=== PATIENT | male | born 1930 | race Caucasian/White ===

== ENCOUNTER 2017-04-02 21:35 | Inpatient (IN) | payer MEDICARE, OTHER ==
[~2017-04-02] VITALS: Ht 172.7 cm; Wt 59.6 kg
[2017-04-02 21:52] VITALS: BP 149/68; PULSE 89; RESP 20; TEMP 98.1; O2SAT 100
[2017-04-02 21:59] VITALS: BP 149/68; PULSE 89; RESP 20; O2SAT 100
[2017-04-02] MEDS ORDERED: SODIUM CHLORIDE 0.9% FLUSH 10 ML FLUSH IVF PRN (22:00)
[2017-04-02 22:07] VITALS: RESP 18; O2SAT 100
--- NOTE | 2017-04-02 22:16 | PD ---
HPI Chief Complaint: Medical Clearance Time Seen by Provider: 21:47 Travel History International Travel<30 days: No Contact w/Intl Traveler<30days: No Traveled to known affect area: No History of Present Illness HPI Patient is an 87-year-old male on dialysis followed by Dr. Al presents the emergency department for evaluation of right lower extremity pain. Patient states that the pain in his right lower extremity has been going on for approximately a month ever since he had his right hip replaced [facility]. Patient states he had dialysis today and has been continued to have pain since. She states the pain gets worse when he walks. States that it is quite severe today. Denies any shortness of breath abdominal pain nausea vomiting diarrhea chest pain or shortness of breath. PFSH Past Medical History Hx Anticoagulant Therapy: Yes (ASA) Cancer: Yes (RT EAR) Cardiovascular Problems: Yes (CABG QUAD, STENTS, CHF) Chest Pain: Yes Congestive Heart Failure: Yes Coronary Artery Disease: Yes Dialysis: Yes (NO STICKS LEFT ARM) Respiratory: Yes (PNEUMONIA) Past Surgical History Abdominal Surgery: Yes (PARTIAL COLOSTOMY, REVERSED) Cardiac Surgery: Yes (CABG QUAD, STENTS) Joint Replacement: Yes (TOTAL RT HIP) Other Surgery: Yes (SKIN CA SX ON RT EAR) Social History Alcohol Use: No Tobacco Use: No Substance Use: No Allergies-Medications (Allergen,Severity, Reaction): Coded Allergies: No Known Allergies (Unverified , 04/02/17) Review of Systems Except as stated in HPI: all other systems reviewed are Neg Physical Exam Narrative GENERAL: [Well-developed, thin but in no obvious distress. SKIN: There is an obvious pallor to the right lower extremity when compared to the left. HEAD: Atraumatic. Normocephalic. EYES: Pupils equal and round. No scleral icterus. No injection or drainage. ENT: No nasal bleeding or discharge. Mucous membranes pink and moist. NECK: Trachea midline. No JVD. CARDIOVASCULAR: Regular rate and rhythm. No murmur appreciated. RESPIRATORY: No accessory muscle use. Clear to auscultation. Breath sounds equal bilaterally. GASTROINTESTINAL: Abdomen soft, non-tender, nondistended. Hepatic and splenic margins not palpable. MUSCULOSKELETAL: Right lower extremity compartments are soft, extremity is pale and cool to the touch vague euthermic when compared to the contralateral extremity. No tenderness to the extremity, there is a femoral pulse but no pulse could be obtained in the dorsalis pedis no the posterior tibial even with pulse Doppler, no popliteal pulse Doppler could be achieved either. No obvious deformity. Pulses are palpable in the left lower extremity. NEUROLOGICAL: Awake and alert. No obvious cranial nerve deficits. Motor grossly within normal limits. Normal speech. PSYCHIATRIC: Appropriate mood and affect; insight and judgment normal. Data Data Last Documented VS Vital Signs Date Time Temp Pulse Resp B/P Pulse Ox O2 Delivery O2 Flow Rate FiO2 04/03/17 01:15 86 18 136/65 98 Room Air 04/02/17 21:52 98.1 Orders Cta Runoff W Iv Contrast W 3d (04/02/17 ) Electrocardiogram (04/02/17 21:47) Complete Blood Count With Diff (04/02/17 21:47) Comprehensive Metabolic Panel (04/02/17 21:47) Magnesium (Mg) (04/02/17 21:47) Prothrombin Time / Inr (Pt) (04/02/17 21:47) Act Partial Throm Time (Ptt) (04/02/17 21:47) Chest, Single Ap (04/02/17 21:47) Ecg Monitoring (04/02/17 21:47) Iv Access Insert/Monitor (04/02/17 21:47) Oximetry (04/02/17 21:47) Oxygen Administration (04/02/17 21:47) Sodium Chloride 0.9% Flush (Ns Flush) (04/02/17 22:00) Acetamin-Hydrocod 325-5 Mg (Renick 5-325 (04/02/17 22:30) Iodixanol 320 Inj (Rad Ct) (Visipaque 32 (04/02/17 22:40) Heparin Infusion CLARENCE.Q1H (04/03/17 00:35) Heparin Inj (Heparin Inj) (04/03/17 00:45) Heparin Inj (Heparin Inj) (04/03/17 06:45) Heparin Inj (Heparin Inj) (04/03/17 06:45) Heparin-D5w Inj (Heparin-D5w Inj) (04/03/17 00:45) Cbc No Diff, Includes Plts (04/06/17 06:00) Act Partial Throm Time (Ptt) (04/03/17 07:35) Occult Blood (Hemoccult) Stool (04/03/17 00:35) Consult Vascular Surgery (04/03/17 ) Morphine Inj (Morphine Inj) (04/03/17 00:45) (Hub Use Only)Inp Phy Cons/Ref (04/03/17 ) Admit Order (Ed Use Only) (04/03/17 ) Consult Nephrology (04/03/17 ) Admit To Inpatient (04/03/17 ) Vital Signs (Adult) Q4H (04/03/17 01:29) Activity Bed Rest (04/03/17 01:29) [employer] Placing Supervisor / Telemetry .CONTINUOUS (04/03/17 01:29) Sodium Chloride 0.9% Flush (Ns Flush) (04/03/17 01:30) Sodium Chloride 0.9% Flush (Ns Flush) (04/03/17 09:00) Basic Metabolic Panel (Bmp) (04/04/17 06:00) Complete Blood Count With Diff (04/04/17 06:00) Naloxone Inj (Narcan Inj) (04/03/17 01:30) Inpatient Certification (04/03/17 ) Creatine Kinase (Cpk) (04/02/17 21:55) Labs Laboratory Tests Test 04/02/17 21:55 White Blood Count 10.7 TH/MM3 Red Blood Count 3.17 MIL/MM3 Hemoglobin 9.9 GM/DL Hematocrit 29.2 % Mean Corpuscular Volume 92.0 FL Mean Corpuscular Hemoglobin 31.2 PG Mean Corpuscular Hemoglobin 33.9 % Concent Red Cell Distribution Width 15.7 % Platelet Count 284 TH/MM3 Mean Platelet Volume 9.0 FL Neutrophils (%) (Auto) 73.6 % Lymphocytes (%) (Auto) 15.3 % Monocytes (%) (Auto) 10.4 % Eosinophils (%) (Auto) 0.2 % Basophils (%) (Auto) 0.5 % Neutrophils # (Auto) 7.9 TH/MM3 Lymphocytes # (Auto) 1.6 TH/MM3 Monocytes # (Auto) 1.1 TH/MM3 Eosinophils # (Auto) 0.0 TH/MM3 Basophils # (Auto) 0.0 TH/MM3 CBC Comment DIFF FINAL Differential Comment Prothrombin Time 10.5 SEC Prothromb Time International 1.0 RATIO Ratio Activated Partial 25.8 SEC Thromboplast Time Sodium Level 140 MEQ/L Potassium Level 4.3 MEQ/L Chloride Level 98 MEQ/L Carbon Dioxide Level 31.7 MEQ/L Anion Gap 10 MEQ/L Blood Urea Nitrogen 13 MG/DL Creatinine 3.67 MG/DL Estimat Glomerular Filtration 16 ML/MIN Rate Random Glucose 173 MG/DL Calcium Level 9.5 MG/DL Magnesium Level 2.2 MG/DL Total Bilirubin 0.5 MG/DL Aspartate Amino Transf 25 U/L (AST/SGOT) Alanine Aminotransferase 16 U/L (ALT/SGPT) Alkaline Phosphatase 93 U/L Total Protein 8.0 GM/DL Albumin 3.1 GM/DL [facility] Medical Decision Making Medical Screen Exam Complete: Yes Emergency Medical Condition: Yes Differential Diagnosis Right lower extremity claudication, right lower extremity ischemia, arterial occlusion acute on chronic. Narrative Course Patient was roomed in emergency department, emergent CTA was pursued which shows significant disease. Patient was discussed radiologist superintendent nonselling per preliminary read is that the patient has near complete occlusion of the right femoral with incomplete collateral circulation. The patient was discussed at length with Dr. Pérez who is arrived at the bedside to evaluate the patient and agrees that the patient's leg is threatened. Dr. Jon has been discussing with Dr. Leodan Naranjo for intervention the plan is to go to the interventional suite for consideration of TPA. The patient was heparinized after discussing with Dr. Jon. The patient and his family were updated he was given several doses of pain medicine in the emergency department. Initially the patient was discussed with Dr. Navarrete who has not been involved directly with the patient's care. After Dr. Pérez has examined the patient he is decided to upgrade the patient to [facility] care and therefore Dr. Garsia has been consult that for primary management. Last 24 hours Impressions Chest X-Ray 04/02/172146 Signed Impressions: Service Date/Time: Sunday, April 02, 2017 22:22 - CONCLUSION: 1. Chronic fibrotic changes bilaterally unchanged from the prior study. No acute pulmonary disease. Alex Terry MD Critical Care Narrative Aggregate critical care time was 35 minutes. Time to perform other separately billable procedures was not included in the critical care time. My time did not include minutes spent treating any other patients simultaneously or on activities that did not directly contribute to the patient's treatment. The services I provided to this patient were to treat and/or prevent clinically significant deterioration that could result in: , disability, organ failure, need for amputation. I provided critical care services requiring my management, as noted below: Chart data review, documentation time, medication orders and management, vital sign assessments/reviewing monitor data, ordering and reviewing lab tests, ordering and interpreting/reviewing x-rays and diagnostic studies, care of the patient and discussion of the patient with the admitting physicians. Diagnosis Primary Impression: Ischemia of right lower extremity Admitting Information Admitting Physician Requests: Admit Condition: Arsh Montiel MD April 02, 2017 22:16
[2017-04-02] MEDS ORDERED: ACETAMINOPHEN/HYDROcodone 325 MG/5 MG TAB PO ONE (22:30)
[2017-04-02 22:40] LABS: AUTOMATED NEUTROPHIL # 7.9 TH/MM3 (1.8-7.7); BASOPHIL % 0.5 % (0.0-2.0); EOSINOPHIL % 0.2 % (0.0-4.0); HEMATOCRIT 29.2 % (39.0-51.0); HEMO FLAGS DIFF FINAL; LYMPH % 15.3 % (9.0-44.0); LYMPHOCYTE # 1.6 TH/MM3 (1.0-4.8); MEAN CORPUSCULAR HEMOGLOBIN 31.2 PG (27.0-34.0); MEAN CORPUSCULAR HGB CONC 33.9 % (32.0-36.0); MONO % 10.4 % (0.0-8.0); NEUT % 73.6 % (16.0-70.0); PLATELET COUNT 284 TH/MM3 (150-450); RED BLOOD COUNT 3.17 MIL/MM3 (4.50-5.90); RED CELL DISTRIBUTION WIDTH 15.7 % (11.6-17.2); WHITE BLOOD COUNT 10.7 TH/MM3 (4.0-11.0)
[2017-04-02] MEDS ORDERED: IODIXANOL 320 MG/ML 10 ML VIAL (for Rad CT) IV ONE (22:40)
--- NOTE | 2017-04-02 22:47 | RADRPT ---
EXAM DATE/TIME: 04/02/2017 22:22 [place] COMPARISON: No previous studies available for comparison. INDICATIONS : Right leg pain. Patient being evaluated for DVT. MEDICAL HISTORY : Congestive heart failure. Dementia. Dialysis. SURGICAL HISTORY : CABG. Coronary artery stent. Skin cancer. Right total hip. ENCOUNTER: Initial ACUITY: 1 day PAIN SCORE: 0/10 LOCATION: Bilateral chest FINDINGS: The cardiac silhouette is normal in transverse diameter. Median sternotomy wires are present. There i s prominence of the aortic knob is with calcification characteristic of atherosclerotic vascular dise ase. There is no evidence of pneumonia. Multiple right-sided granulomas are present. There is probab le scarring bilaterally. CONCLUSION: 1. Chronic fibrotic changes bilaterally unchanged from the prior study. No acute pulmonary disease. Alex Terry MD on April 02, 2017 at 22:45 Board Certified Radiologist. This report was verified electronically.
[2017-04-02 23:00] VITALS: BP 157/70; PULSE 89; RESP 18; O2SAT 100
[2017-04-02 23:00] LABS: ANION GAP 10 MEQ/L (5-15); APTT (PATIENT) 25.8 SEC (24.3-30.1); AST (GOT) 25 U/L (15-37); BICARBONATE 31.7 MEQ/L (21.0-32.0); BLOOD UREA NITROGEN 13 MG/DL (7-18); CHLORIDE 98 MEQ/L (98-107); GLOMERULAR FILTRATION RATE 16 ML/MIN (>89); MAGNESIUM 2.2 MG/DL (1.5-2.5); POTASSIUM 4.3 MEQ/L (3.5-5.1); PROTHROMBIN TIME - PATIENT 10.5 SEC (9.8-11.6); SODIUM (NA) 140 MEQ/L (136-145)
[2017-04-02 23:04] LABS: ALKALINE PHOSPHATASE 93 U/L (45-117); ALT (GPT) 16 U/L (12-78); TOTAL BILIRUBIN ADULT 0.5 MG/DL (0.2-1.0)
[2017-04-03] VITALS (16 sets, daily range): BP systolic 87–136; BP diastolic 50–67; PULSE 78–123; RESP 14–32; TEMP 97.6–98.7; O2SAT 94–100
[2017-04-03] MEDS ORDERED: HEPARIN SODIUM - IV 10,000 UNITS/10 ML VIAL IV ONE (00:45)
[2017-04-03] MEDS ORDERED: MORPHINE SULFATE 4 MG/ML INJ IV PUSH ONE ×2 (00:45→02:30)
[2017-04-03] MEDS ORDERED: HEPARIN-D5W INJ 250 ML IV SCH (00:45)
[2017-04-03] MEDS ORDERED: NALOXONE HCL 0.4 MG/ML AMP IV PRN ×2 (01:30→02:45)
[2017-04-03] MEDS ORDERED: SODIUM CHLORIDE 0.9% FLUSH 10 ML FLUSH IV FLUSH PRN ×3 (01:30→10:45)
[2017-04-03] MEDS ORDERED: SODIUM CHLOR 0.9% 250 ML INJ 250 ML IV ONE ×2 (02:15)
[2017-04-03] MEDS ORDERED: MIDAZOLAM HCL 5 MG/5 ML VIAL ONE ×2 (02:42→12:25)
[2017-04-03] MEDS ORDERED: fentaNYL CITRATE 250 MCG/5 ML AMP ONE ×2 (02:42→12:25)
[2017-04-03] MEDS ORDERED: ONDANSETRON HCL 4 MG/2 ML VIAL IV PRN ×4 (02:45→10:45)
[2017-04-03] MEDS ORDERED: Post-op Orders (for Pharmacy) MISC XX ONE (02:45)
[2017-04-03] MEDS: SODIUM CHLOR 0.9% 1000 ML INJ 1,000 ML IV SCH ×2 (03:14→15:09)
[2017-04-03] MEDS ORDERED: MORPHINE SULFATE 4 MG/ML INJ IV PRN (03:15)
[2017-04-03] MEDS ORDERED: MISCELLANEOUS NURSING INFORMATION XX SCH (03:15)
[2017-04-03] MEDS ORDERED: TEMAZEPAM 15 MG CAP PO PRN (03:15)
[2017-04-03] MEDS ORDERED: RESP: ALBUTEROL 2.5 MG/IPRATROPIUM 0.5 MG NEB (PRN) INH (03:15)
[2017-04-03] MEDS ORDERED: SODIUM CHLORIDE 0.9% FLUSH 10 ML FLUSH PRN (03:15)
[2017-04-03] MEDS ORDERED: METOCLOPRAMIDE HCL 10 MG/2 ML VIAL IV PRN (03:15)
[2017-04-03] MEDS ORDERED: oxyCODONE/ACETAMINOPHEN 5 MG/325 MG TAB PO PRN (03:15)
[2017-04-03] MEDS ORDERED: ACETAMINOPHEN 325 MG TAB PO PRN ×2 (03:15→10:45)
[2017-04-03] MEDS ORDERED: CHLORHEXIDINE GLUCONATE 2 % 1 PACK (2 CLOTHS) TOP PRN (03:15)
[2017-04-03] MEDS ORDERED: ALTEPLASE RECOMBINANT 2 MG VIAL ONE (03:45)
[2017-04-03] MEDS ORDERED: CHLORHEXIDINE GLUCONATE 2 % 1 PACK (2 CLOTHS) TOP SCH (04:00)
--- NOTE | 2017-04-03 04:01 | PD.RAD ---
Post Procedure Progress Note Pre Procedure Diagnosis: (1) Ischemia of right lower extremity Post Procedure Diagnosis: (1) Ischemia of right lower extremity Procedure Date: April 03, 2017 Supervising Radiologist: Franklin Naranjo Anesthesia: Local, Conscious Sedation Plan of Activity Patient to Unit: Critical Care Patient Condition: Fair Additional Comments: Angio demonstrated complete thrombosis of the right lower extremity with fresh clot throughout the SFA, Profunda, popliteal and with extension down into the tibial vessels.Run off vessels are quite diseased with clot evident. Right leg is severely threatened at this point. TPA infusion initiated at 2mg per hour in hopes of opening up some distal run off. Will reevaluate in 8-10 hours. See PACS Report for procedural detail/treatment Franklin Naranjo MD April 03, 2017 04:01
[2017-04-03] MEDS ORDERED: IODIXANOL 320 MG/ML 50 ML VIAL (for RAD SPEC) I-ARTERIAL ONE ×3 (04:25→13:43)
--- NOTE | 2017-04-03 05:47 | HHI.HP ---
[facility] Service Critical Care Medicine Primary Care Physician [facility] Admission Diagnosis Ischemic RLE Diagnosis: Travel History International Travel<30 Days: No Contact w/Intl Traveler <30 Da: No Traveled to Known Affected Are: No History of Present Illness 87-year-old gentleman with history of coronary artery disease, status post CABG , peripheral vascular disease, end-stage renal disease on hemodialysis was brought by the family today for complaining of severe right lower extremity pain. He was found in the emergency department to be missing peripheral pulses on the right lower extremity and was emergently taken to the vascular suite for angiogram and thrombolysis. He was diagnosed with acute right lower extremity thrombosis and treated with TPA. Review of Systems Constitutional: DENIES: Diaphoretic episodes, Fatigue, Fever, Weight gain, Weight loss, Chills, Dizziness, Change in appetite, Night Sweats Endocrine: DENIES: Heat/cold intolerance, Polydipsia, Polyuria, Polyphagia Eyes: DENIES: Blurred vision, Diplopia, Eye inflammation, Eye pain, Vision loss , Photosensitivity, Double Vision Ears, nose, mouth, throat: DENIES: Tinnitus, Hearing loss, Vertigo, Nasal discharge, Oral lesions, Throat pain, Hoarseness, Ear Pain, Running Nose, Epistaxis, Sinus Pain, Toothache, Odynophagia Respiratory: DENIES: Apneas, Cough, Snoring, Wheezing, Hemoptysis, Sputum production, Shortness of breath Cardiovascular: DENIES: Chest pain, Palpitations, Syncope, Dyspnea on Exertion , PND, Lower Extremity Edema, Orthopnea, Claudication Gastrointestinal: DENIES: Abdominal pain, Black stools, Bloody stools, Constipation, Diarrhea, Nausea, Vomiting, Difficulty Swallowing, Anorexia Genitourinary: DENIES: Sexual dysfunction, Urinary frequency, Urinary incontinence, Urgency, Hematuria, Dysuria, Nocturia, Penile Discharge, Testicular Pain, Testicular Swelling Musculoskeletal: DENIES: Joint pain, Muscle aches, Stiffness, Joint Swelling, Back pain, Neck pain Integumentary: DENIES: Abnormal pigmentation, Nail changes, Pruritus, Rash Hematologic/lymphatic: DENIES: Bruising, Lymphadenopathy Immunologic/allergic: DENIES: Eczema, Urticaria Neurologic: DENIES: Abnormal gait, Headache, Localized weakness, Paresthesias, Seizures, Speech Problems, Tremor, Poor Balance Psychiatric: DENIES: Anxiety, Confusion, Mood changes, Depression, Hallucinations, Agitation, Suicidal Ideation, Homicidal Ideation, Delusions Past Family Social History Allergies: Coded Allergies: No Known Allergies (Unverified , 04/02/17) Past Medical History Right ear skin cancer Congestive Heart Failure Coronary Artery Disease End-stage renal disease on hemodialysis Past Surgical History Partial colostomy, reversed CABG Total right hip replacement AV hemodialysis fistula Active Ordered Medications Current Medications Medications (Trade) Dose Ordered Sig/Lupe Route PRN Reason Start Time Stop Time Status Last Admin Dose Admin Heparin Sodium (Porcine) (Heparin Inj) 5,000 units UNSCH PRN IV APTT LESS THAN 25 04/03/17 06:45 Heparin Sodium (Porcine) 2500 units 2,500 units UNSCH PRN IV APTT 25 TO 39 04/03/17 06:45 Heparin Sodium/ Dextrose 250 ml @ 0 mls/hr TITRATE IV 04/03/17 00:45 04/03/17 01:03 Sodium Chloride 250 ml @ 15 mls/hr ONCE ONCE IV 04/03/17 02:15 04/03/17 18:54 Sodium Chloride (NS 250 ml Inj) 250 ml @ 15 mls/hr ONCE ONCE IV 04/03/17 02:15 04/03/17 18:54 Sodium Chloride (NS Flush) 2 ml UNSCH PRN IV FLUSH FLUSH AFTER USING IV ACCESS 04/03/17 02:45 Sodium Chloride (NS Flush) 2 ml BID IV FLUSH 04/03/17 09:00 Ondansetron HCl (Zofran Inj) 4 mg Q6H PRN IV NAUSEA OR VOMITING 04/03/17 02:45 Pantoprazole Sodium (Protonix) 40 mg Q24H PO 04/03/17 09:00 Naloxone HCl 0.4 mg 0.4 mg UNSCH PRN IV SEE LABEL COMMENTS 04/03/17 02:45 Sodium Chloride (NS 1000 ml Inj) 1,000 ml @ 84 mls/hr [id number] IV 04/03/17 03:14 Sodium Chloride (NS Flush) 2 ml UNSCH PRN .XX FLUSH AFTER USING IV ACCESS 04/03/17 03:15 Sodium Chloride (NS Flush) 2 ml BID .XX 04/03/17 09:00 Acetaminophen (Tylenol) 650 mg Q6H PRN PO PAIN 1-10 AND/OR FEVER >101F 04/03/17 03:15 Oxycodone/ Acetaminophen (Percocet 5-325 Mg) 1 tab Q4H PRN PO PAIN SCALE 1 TO 5 04/03/17 03:15 Morphine Sulfate (Morphine Inj) 2 mg Q2H PRN IV PAIN SCALE 6 TO 10 04/03/17 03:15 Famotidine (Pepcid) 10 mg Q12HR PO 04/03/17 09:00 Ondansetron HCl (Zofran Inj) 4 mg Q6H PRN IV NAUSEA OR VOMITING 04/03/17 03:15 Metoclopramide HCl (Reglan Inj) 5 mg Q6H PRN IV NAUSEA OR VOMITING 04/03/17 03:15 Docusate Sodium (Colace) 100 mg BID PO 04/03/17 09:00 Temazepam (Restoril) 15 mg HS PRN PO INSOMNIA 04/03/17 03:15 Miscellaneous Information 1 Q361D XX 04/03/17 03:15 Chlorhexidine Gluconate (Chlorhexidine 2% Cloth) 3 pack Taper DAILY@04 TOP 04/03/17 04:00 03/30/18 03:59 Chlorhexidine Gluconate (Chlorhexidine 2% Cloth) 3 pack UNSCH PRN TOP HYGIENIC CARE 04/03/17 03:15 Family History Noncontributory Social History Negative 3 Physical Exam Vital Signs Vital Signs Date Time Temp Pulse Resp B/P Pulse Ox O2 Delivery O2 Flow Rate FiO2 04/03/17 02:28 86 18 127/67 98 04/03/17 01:59 87 18 136/67 99 Room Air 04/03/17 01:15 86 18 136/65 98 Room Air 04/03/17 00:10 88 18 132/65 99 Room Air 04/02/17 23:00 89 18 157/70 100 Room Air 04/02/17 22:07 100 Room Air 04/02/17 22:07 18 100 Room Air 04/02/17 22:00 88 20 04/02/17 21:59 89 20 149/68 100 Room Air 04/02/17 21:52 98.1 89 20 149/68 100 Physical Exam GENERAL: Well-nourished, well-developed patient elderly gentleman comfortably sleeping in the bed in no acute distress SKIN: Warm and dry. HEAD: Normocephalic. EYES: No scleral icterus. No injection or drainage. NECK: Supple, trachea midline. No JVD or lymphadenopathy. CARDIOVASCULAR: Regular rate and rhythm without murmurs, gallops, or rubs. RESPIRATORY: Breath sounds equal bilaterally. No accessory muscle use. GASTROINTESTINAL: Abdomen soft, non-tender, nondistended. MUSCULOSKELETAL: No cyanosis, or edema. BACK: Nontender without obvious deformity. No CVA tenderness. EXTREMITIES: No peripheral pulses in the right lower extremity Laboratory Laboratory Tests Test 04/02/17 04/03/17 21:55 02:15 White Blood Count 10.7 Red Blood Count 3.17 Hemoglobin 9.9 Hematocrit 29.2 Mean Corpuscular Volume 92.0 Mean Corpuscular Hemoglobin 31.2 Mean Corpuscular Hemoglobin 33.9 Concent Red Cell Distribution Width 15.7 Platelet Count 284 Mean Platelet Volume 9.0 Neutrophils (%) (Auto) 73.6 Lymphocytes (%) (Auto) 15.3 Monocytes (%) (Auto) 10.4 Eosinophils (%) (Auto) 0.2 Basophils (%) (Auto) 0.5 Neutrophils # (Auto) 7.9 Lymphocytes # (Auto) 1.6 Monocytes # (Auto) 1.1 Eosinophils # (Auto) 0.0 Basophils # (Auto) 0.0 CBC Comment DIFF FINAL Differential Comment Prothrombin Time 10.5 Prothromb Time International 1.0 Ratio Activated Partial 25.8 Thromboplast Time Sodium Level 140 Potassium Level 4.3 Chloride Level 98 Carbon Dioxide Level 31.7 Anion Gap 10 Blood Urea Nitrogen 13 Creatinine 3.67 Estimat Glomerular Filtration 16 Rate Random Glucose 173 Calcium Level 9.5 Magnesium Level 2.2 Total Bilirubin 0.5 Aspartate Amino Transf 25 (AST/SGOT) Alanine Aminotransferase 16 (ALT/SGPT) Alkaline Phosphatase 93 Total Protein 8.0 Albumin 3.1 Blood Type O NEGATIVE Antibody Screen NEGATIVE Blood Bank Comment Result Diagram: 04/02/17215404/02/172154 Imaging Last 24 hours Impressions Chest X-Ray 04/02/172146 Signed Impressions: Service Date/Time: Sunday, April 02, 2017 22:22 - CONCLUSION: 1. Chronic fibrotic changes bilaterally unchanged from the prior study. No acute pulmonary disease. Alex Terry MD Assessment and Plan Assessment and Plan Right lower extremity thrombosis - Status post TPA administered by IR - Management per Dr. Valerio vascular surgery - Heparin drip ESRD - Hemodialysis per nephrology Coronary artery disease - Continue aspirin and statins DVT GI prophylaxis - Heparin drip - Pepcid Critical Care: The total critical care time was 35 minutes. Time to perform other separately billable procedures was not included in the critical care time. Vic Garsia MD April 03, 2017 05:47
[2017-04-03 06:11] LABS: CREATINE KINASE 30 U/L (39-308)
--- NOTE | 2017-04-03 06:39 | MB ---
cc: CHIQUITA RIVER MD DATE OF CONSULTATION 04/03/[address] River, vascular surgery REASON FOR CONSULTATION Acute occlusion of the right leg, peripheral vascular disease, and chronic renal failure. HISTORY OF PRESENT DISEASE This 87-year-old male presented to the emergency room this evening with a history of difficulty walking for months. However, today around 6 o'clock in the evening, he noted that his leg changed color. I was called around one in the morning to attend to the patient after he underwent a CT scan which revealed occlusion of flow to the right leg. The patient states that he had longstanding problems with his legs, however this is a sudden change and to it very concerning so he came to the ER. PAST SURGICAL HISTORY 1. Left colectomy with colostomy and reversal. 2. Coronary artery bypass surgery in the s followed by several stents later on. 3. Right total hip replacement six weeks ago. 4. AV fistula placement left arm. SOCIAL HISTORY Does not smoke or drink. PAST medical HISTORY 1. Above-noted coronary artery disease with CABG and stents. 2. Recent pneumonia about 3. Several bouts of atrial fibrillation. 4. Chronic renal failure requiring dialysis for last few years. PHYSICAL EXAM Physical examination reveals a pleasant 87-year-old gentleman in no acute distress. HEAD, EYES, EARS, NOSE, AND THROAT: Normocephalic. No trauma to the head. Pupils equally reactive. Extraocular muscles are intact. NECK: Supple. Bilateral carotid pulses and bilateral faint bruits. CHEST: Bilateral breath sounds decreased over both lung early. HEART: Regular rhythm. The patient is not in atrial fibrillation. ABDOMEN: Soft, patulous. Scars from previous surgery. Active bowel sounds. EXTREMITIES: Upper extremities are normal. On the Lower extremities, the patient has bilateral femoral pulses strong and palpable. On the left side, the patient has a palpable popliteal pulse, dorsalis pedis and posterior tibial pulse. On the right side, the patient has no pulses below the groin. Right foot is pale, white clearly with no blood flow and decreased sensation over the plantar surface of the foot. The patient can still move the foot. NEUROLOGIC: Grossly, the patient is intact except for decreased sensation in the right leg and foot. IMPRESSION/RECOMMENDATIONS This gentleman has acute occlusion of the flow to the right leg, however this is superimposed on chronic underlying arteriosclerotic disease so the whole thing basically came to a grinding halt. This was a thrombotic phenomenon based on vascular underlying changes. At this point, the patient is six weeks out of his hip surgery and the most appropriate way to treat this as with tPA lysis which will be started today. I have discussed this with Dr. Leodan Naranjo, interventional radiology. In the best case scenario per the completion of the tPA lysis the next 24 hours, we will see what is left and what this anatomy looks like. The patient has some reconstructable disease either by endovascular open means. I will resort to that in order to minimize the chance of this coming back. On the other hand in the worst case scenario, there is nothing reconstructable. We cannot get a flow back at all and at that point, the patient would lose his leg. In addition open surgery and TPA lysis carry certain risks including stroke, intracranial hemorrhage, systemic hemorrhage, cardiac complications etc. I have explained this to the patient and the family and they understand. I spoken to interventional radiologist and patient will go emergently for a tPA lysis which I believe is the best option and we will go from there. Thank you very much for your referral. Critical care time 40 minutes. Chiquita CHÁVEZ /2:39 AM /6:31 AM MTDD
[2017-04-03] MEDS ORDERED: HEPARIN SODIUM - IV 10,000 UNITS/10 ML VIAL IV PRN ×2 (06:45)
[2017-04-03] MEDS ORDERED: HEPARIN 25,000 UNITS/250 ML D5W IV SCH (07:30)
[2017-04-03] MEDS: Intra-Arterial HEPARIN 1,000 UNITS/500 ML NS (KVO) I-ARTERIAL SCH ×2 (07:30)
[2017-04-03] MEDS ORDERED: Intra-Arterial ALTEPLASE 10 MG/500 ML NS I-ARTERIAL SCH ×2 (07:30)
[2017-04-03] MEDS ORDERED: Intra-Arterial HEPARIN 1,000 UNITS/500 ML NS (PRN) I-ARTERIAL ×2 (07:30)
[2017-04-03] MEDS ORDERED: SODIUM CHLOR 0.9% 1000 ML INJ 1,000 ML IV SCH (07:45)
[2017-04-03 08:12] LABS: APTT (PATIENT) 64.8 SEC (24.3-30.1)
--- NOTE | 2017-04-03 08:25 | RADRPT ---
EXAM DATE/TIME: 04/02/2017 22:29 [facility] COMPARISON: No previous studies available for comparison. INDICATIONS : Right leg numbness and pale in color. Evaluate for occlusion. IV CONTRAST: 100 cc Visipaque (iodixanol) IV RADIATION DOSE: 2.28 CTDIvol (mGy) MEDICAL HISTORY : Congestive hearrt failure. Coronary artery disease. Dialysis. SURGICAL HISTORY : CABG Coronary artery stent.Total right hip. ENCOUNTER: Initial ACUITY: 1 day PAIN SCALE: 10/10 LOCATION: Right lower extremity. TECHNIQUE: Volumetric scanning was performed using a multi-row detector CT scanner. The data was post processed with a variety of visualization algorithms including full volume maximum intensity projection, multi -planar sliding thin slab reformation, curved planar reformation, and surface rendering techniques. Using automated exposure control and adjustment of the mA and/or kV according to patient size, radiat ion dose was kept as low as reasonably achievable to obtain optimal diagnostic quality images. FINDINGS: There is linear atelectasis versus scar on the left. There is calcification of both hemidiaphragms as well as the posterior pleura characteristic of asbestos exposure. The liver and spleen are normal in size and no focal defects are identified. The gallbladder and pancreas are unremarkable. No intrahep atic or extrahepatic ductal dilatation is seen. The adrenal glands are unremarkable. There are small atrophic kidneys bilaterally characteristic of chronic renal disease. The aorta is normal in caliber. There is no evidence of aneurysm or dissection. There is 60-70% steno sis at the origin of the renal arteries bilaterally. Examination of the right lower extremity demonstrates no evidence of inflow stenosis. The common femo ral artery is occluded with long segment occlusion of the superficial femoral artery. There is severe dense calcification of the infrapopliteal vessels and there is no single vessel runoff to the ankle. Examination of the left lower extremity demonstrates no evidence of inflow stenosis. The common femor al artery is patent. There is 50% stenosis at the junction of the femoral and popliteal artery. The p opliteal artery is patent. There is severe infrapopliteal disease with dense calcification and multip le areas of stenosis. CONCLUSION: 1. 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 2. Severe popliteal and infrapopliteal disease on the left 3. Catheter angiography is recommended for further evaluation if clinically indicated. Alex Terry MD on April 03, 2017 at 7:55 Board Certified Radiologist. This report was verified electronically.
[2017-04-03] MEDS: FAMOTIDINE 20 MG TAB PO SCH ×2 (09:00→21:00)
[2017-04-03] MEDS: SODIUM CHLORIDE 0.9% FLUSH 10 ML FLUSH SCH ×2 (09:00→21:00)
[2017-04-03] MEDS ORDERED: PANTOPRAZOLE SOD 40 MG DELAYED RELEASE TAB PO SCH (09:00)
[2017-04-03] MEDS: SODIUM CHLORIDE 0.9% FLUSH 10 ML FLUSH IV FLUSH SCH ×2 (09:00→21:00)
[2017-04-03] MEDS ORDERED: SODIUM CHLORIDE 0.9% FLUSH 10 ML FLUSH IV FLUSH SCH (09:00)
[2017-04-03] MEDS: DOCUSATE SODIUM 100 MG CAP PO SCH ×2 (09:00→21:00)
[2017-04-03] MEDS ORDERED: SODIUM CHLOR 0.9% 1000 ML INJ 1,000 ML IV PRN ×3 (10:34)
[2017-04-03] MEDS ORDERED: GELATIN 12 MM/7 MM FOAM TOP PRN (10:45)
[2017-04-03] MEDS ORDERED: ALBUMIN HUMAN 25% 25 GM/100 ML BAGP IV PRN (10:45)
[2017-04-03] MEDS ORDERED: cloNIDine HCL 0.1 MG TAB PO PRN (10:45)
[2017-04-03] MEDS ORDERED: NITROGLYCERIN 0.4 MG SL 25 TABS/BTL SL PRN (10:45)
[2017-04-03] MEDS ORDERED: diphenhydrAMINE HCL 25 MG CAP PO PRN (10:45)
[2017-04-03] MEDS ORDERED: MANNITOL 12.5 GM/50 ML VIAL IV PRN (10:45)
[2017-04-03] MEDS ORDERED: HEPARIN SODIUM - IV 10,000 UNITS/10 ML VIAL IVF PRN (10:45)
--- NOTE | 2017-04-03 10:46 | PD.CONS ---
HPI Service Nephrology Consult Requested By Dr. Garsia Reason for Consult ESRD Primary Care Physician [facility] History of Present Illness Patient is a 87-year-old white male with history of end-stage renal disease, peripheral vascular disease, hypertension who states he goes on hemodialysis on Friday, Friday and Friday, he had his dialysis yesterday, he came in yesterday after developing ischemic right leg and underwent emergent angiogram followed by angioplasty of his right leg as he has thrombosis, patient is now on TPA, heparin. Review of Systems Constitutional: COMPLAINS OF: Fatigue Musculoskeletal: COMPLAINS OF: Joint pain Neurologic: COMPLAINS OF: Abnormal gait Past Family Social History Allergies: Coded Allergies: No Known Allergies (Unverified , 04/02/17) Past Medical History End-stage renal disease, follows with Dr. 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 Coronary artery disease Past Surgical History Coronary artery bypass graft Skin cancer removal Right hip surgery History of partial colectomy AV fistula left arm Active Ordered Medications Current Medications Medications (Trade) Dose Ordered Sig/Lupe Route Start Time Stop Time Status Last Admin Sodium Chloride 250 ml @ 15 mls/hr ONCE ONCE IV 04/03/17 02:15 04/03/17 18:54 (NS 250 ml Inj) 250 ml @ 15 mls/hr ONCE ONCE IV 04/03/17 02:15 04/03/17 18:54 (NS Flush) 2 ml UNSCH PRN IV FLUSH 04/03/17 02:45 (NS Flush) 2 ml BID IV FLUSH 04/03/17 09:00 (Zofran Inj) 4 mg Q6H PRN IV 04/03/17 02:45 (Protonix) 40 mg Q24H PO 04/03/17 09:00 Naloxone HCl 0.4 mg 0.4 mg UNSCH PRN IV 04/03/17 02:45 (NS 1000 ml Inj) 1,000 ml @ 84 mls/hr [id number] IV 04/03/17 03:14 (NS Flush) 2 ml UNSCH PRN .XX 04/03/17 03:15 (NS Flush) 2 ml BID .XX 04/03/17 09:00 (Tylenol) 650 mg Q6H PRN PO 04/03/17 03:15 (Percocet 5-325 Mg) 1 tab Q4H PRN PO 04/03/17 03:15 (Morphine Inj) 2 mg Q2H PRN IV 04/03/17 03:15 (Pepcid) 10 mg Q12HR PO 04/03/17 09:00 (Zofran Inj) 4 mg Q6H PRN IV 04/03/17 03:15 (Reglan Inj) 5 mg Q6H PRN IV 04/03/17 03:15 (Colace) 100 mg BID PO 04/03/17 09:00 (Restoril) 15 mg HS PRN PO 04/03/17 03:15 Miscellaneous Information 1 Q361D XX 04/03/17 03:15 04/03/17 03:15 (Chlorhexidine 2% Cloth) 3 pack Taper DAILY@04 TOP 04/03/17 04:00 03/30/18 03:59 04/03/17 04:00 Chlorhexidine Gluconate 3 pack 3 pack UNSCH PRN TOP 04/03/17 03:15 Alteplase, Recombinant 10 mg/ Sodium Chloride 500 ml @ 0 mls/hr CONTINUOUS I-ARTERIAL 04/03/17 07:30 Heparin Sodium (Porcine) 1000 units/Sodium Chloride 500 ml @ 10 mls/hr UNSCH PRN I-ARTERIAL 04/03/17 07:30 Heparin Sodium (Porcine) 1000 units/Sodium Chloride 500 ml @ 30 mls/hr [id number] I-ARTERIAL 04/03/17 07:30 (Heparin-D5W Inj) 250 ml @ 0 mls/hr TITRATE IV 04/03/17 07:30 Ondansetron HCl 4 mg 4 mg Q6H PRN IV 04/03/17 07:30 (NS 1000 ml Inj) 1,000 ml @ 30 mls/hr Q24H IV 04/03/17 07:45 Family History Noncontributory Social History He used to smoke and tried alcohol when he was in the [place] more than 50 years ago Physical Exam Vital Signs Vital Signs Date Time Temp Pulse Resp B/P Pulse Ox O2 Delivery O2 Flow Rate FiO2 04/03/17 08:00 79 04/03/17 08:00 97.8 78 14 111/57 100 04/03/17 07:00 100 Nasal Cannula 2.00 04/03/17 07:00 82 04/03/17 06:00 80 100 04/03/17 06:00 85 04/03/17 04:30 100 Nasal Cannula 2.00 04/03/17 04:30 98.7 82 20 121/62 100 04/03/17 02:28 86 18 127/67 98 04/03/17 01:59 87 18 136/67 99 Room Air 04/03/17 01:15 86 18 136/65 98 Room Air 04/03/17 00:10 88 18 132/65 99 Room Air 04/02/17 23:00 89 18 157/70 100 Room Air 04/02/17 22:07 100 Room Air 04/02/17 22:07 18 100 Room Air 04/02/17 22:00 88 20 04/02/17 21:59 89 20 149/68 100 Room Air 04/02/17 21:52 98.1 89 20 149/68 100 Physical Exam GENERAL: Well-nourished, well-developed patient. SKIN: Warm and dry. HEAD: Normocephalic. EYES: No scleral icterus. No injection or drainage. NECK: Supple, trachea midline. No JVD or lymphadenopathy. CARDIOVASCULAR: Regular rate and rhythm without murmurs, gallops, or rubs. RESPIRATORY: Breath sounds equal bilaterally. No accessory muscle use. GASTROINTESTINAL: Abdomen soft, non-tender, nondistended. EXTREMITIES: No cyanosis, or edema. Pulses are weak, AV fistula left arm NEUROLOGICAL: Awake, alert, and oriented x 3. Non-focal. Laboratory Laboratory Tests Test 04/02/17 04/03/17 04/03/17 21:55 02:15 07:40 White Blood Count 10.7 Red Blood Count 3.17 Hemoglobin 9.9 Hematocrit 29.2 Mean Corpuscular Volume 92.0 Mean Corpuscular Hemoglobin 31.2 Mean Corpuscular Hemoglobin 33.9 Concent Red Cell Distribution Width 15.7 Platelet Count 284 Mean Platelet Volume 9.0 Neutrophils (%) (Auto) 73.6 Lymphocytes (%) (Auto) 15.3 Monocytes (%) (Auto) 10.4 Eosinophils (%) (Auto) 0.2 Basophils (%) (Auto) 0.5 Neutrophils # (Auto) 7.9 Lymphocytes # (Auto) 1.6 Monocytes # (Auto) 1.1 Eosinophils # (Auto) 0.0 Basophils # (Auto) 0.0 CBC Comment DIFF FINAL Differential Comment Prothrombin Time 10.5 Prothromb Time International 1.0 Ratio Activated Partial 25.8 64.8 Thromboplast Time Sodium Level 140 Potassium Level 4.3 Chloride Level 98 Carbon Dioxide Level 31.7 Anion Gap 10 Blood Urea Nitrogen 13 Creatinine 3.67 Estimat Glomerular Filtration 16 Rate Random Glucose 173 Calcium Level 9.5 Magnesium Level 2.2 Total Bilirubin 0.5 Aspartate Amino Transf 25 (AST/SGOT) Alanine Aminotransferase 16 (ALT/SGPT) Alkaline Phosphatase 93 Total Creatine Kinase 30 Total Protein 8.0 Albumin 3.1 Blood Type O NEGATIVE Antibody Screen NEGATIVE Blood Bank Comment Fibrinogen 506 Result Diagram: 04/02/17215404/02/172154 Imaging Last Impressions Chest X-Ray 04/02/172146 Signed Impressions: Service Date/Time: Sunday, April 02, 2017 22:22 - CONCLUSION: 1. Chronic fibrotic changes bilaterally unchanged from the prior study. No acute pulmonary disease. Alex Terry MD Aorta w/Runoff CTA 04/02/17 0000 Signed Impressions: Service Date/Time: Sunday, April 02, 2017 22:29 - CONCLUSION: 1. 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 2. Severe popliteal and infrapopliteal disease on the left 3. Catheter angiography is recommended for further evaluation if clinically indicated. Alex Terry MD Assessment and Plan Problem List: (1) ESRD (end stage renal disease) on dialysis Plan: Patient then did receive hemodialysis on Friday, continue with hemodialysis on Friday, Friday and Friday although he received a dye study I will wait till tomorrow as he was unstable yesterday and he has ischemic leg with TPA and heparin given I discussed the care with Dr. Naik (2) PVD (peripheral vascular disease) Plan: Ischemic leg vascular surgery is following (3) Ischemia of right lower extremity Plan: As above Dr. River is following (4) Coronary artery disease Plan: Dong Rivera MD April 03, 2017 10:46
--- NOTE | 2017-04-03 11:43 | HHI.CCPN ---
Subjective Brief History This 87-year-old male presented to the emergency room this evening with a history of difficulty walking for months. However, today around 6 o'clock in the evening, he noted that his leg changed color. I was called around one in the morning to attend to the patient after he underwent a CT scan which revealed occlusion of flow to the right leg. The patient states that he had longstanding problems with his legs, however this is a sudden change and to it very concerning so he came to the ER. PAST SURGICAL HISTORY 1. Left colectomy with colostomy and reversal. 2. Coronary artery bypass surgery in the s followed by several stents later on. 3. Right total hip replacement six weeks ago. 4. AV fistula placement left arm. PAST medical HISTORY 1. Above-noted coronary artery disease with CABG and stents. 2. Recent pneumonia about 3. Several bouts of atrial fibrillation. 4. Chronic renal failure requiring dialysis for last few years. On exam patient has palpable right femoral artery pulse and no pulses below the femoral artery level. Patient was emergently taken to the Lab for arteriogram and TPA lysis and remain some TPA lysis in the ICU 24 Hour Review/Hospital Course 04/03/17 Patient with chronic arthrosclerotic disease and vascular occlusive disease of the right leg and on that superimposed acute thromboembolic event Patient has been on TPA lysis since 3:00 AM. He had no dopplerable popliteal pulses in the right foot or lower leg and currently does not have any either. I tried to detect doppler signal popliteal pulse but this the area However, his thigh is warm and he starting to warm up the leg chcf down the calf At this point lab studies are adequate with high levels of fibrinogen and therefore its appropriate to continue TPA therapy Patient will undergo arteriogram this afternoon and depending on that we will either continue TPA for another 24 hours or patient may need to go to the operating room for thromboembolectomy. I believe that surgical thromboembolectomy in this situation is an inferior option and if possible we should continue TPA When all done tomorrow he may still need some degree of mechanical embolectomy but the more we can clean out the vessels below the level of the knee with TPA the better the chance he will keep his leg Objective Vital Signs Date Time Temp Pulse Resp B/P Pulse Ox O2 Delivery O2 Flow Rate FiO2 04/03/17 10:00 85 04/03/17 08:00 97.8 14 111/57 100 04/03/17 07:00 Nasal Cannula 2.00 Result Diagram: 04/02/17215404/02/172154 Imaging Last 24 hours Impressions Chest X-Ray 04/02/172146 Signed Impressions: Service Date/Time: Sunday, April 02, 2017 22:22 - CONCLUSION: 1. Chronic fibrotic changes bilaterally unchanged from the prior study. No acute pulmonary disease. Alex Terry MD Exam FOOD EXPEDITOR Awake alert oriented neurologically fully intact Hemodynamic/Cardiac Hemodynamically remains stable Pulmonary/Respiratory Bilateral good breath sounds Abdomen/GI Nutrition Abdomen is soft no rebound or guarding no masses no bruising Renal/I&O Patient is on chronic dialysis and renal consult and management are greatly appreciated Assessment and Plan Attestation The exam, history, and the medical decision-making described in the above note were completed with the assistance of the mid-level provider. I reviewed and agree with the findings presented. I attest that I had a [id number] encounter with the patient on the same day, and personally performed and documented my assessment and findings in the medical record. Critical care time 42 minutes. Chiquita River MD April 03, 2017 11:43
--- NOTE | 2017-04-03 13:30 | PD.RAD ---
Post Procedure Progress Note Pre Procedure Diagnosis: (1) Ischemia of right lower extremity Post Procedure Diagnosis: (1) Ischemia of right lower extremity Procedure Date: April 03, 2017 Supervising Radiologist: Rich Winn JR Proceduralist/Assist: Marla Blanco, RT(R)(), Jaden Abreu, RT(R) Anesthesia: Local Plan of Activity Patient to Unit: Critical Care Patient Condition: Fair See PACS Report for procedural detail/treatment Vascular-Arterial Procedure Procedure 1 Procedure Site: Right Leg Procedure(s): Angiogram, Angioplasty Access Access Site(s): Left Femoral Artery Sheath(s) Remaining: Left Femoral Artery Findings: s/p 10 hours of catheter directed thrombolysis of right LE. Clinically reduced pain. Pain now only in foot. Sensory and motor preserved. F/U angio shows significant reduction in thrombus load of SFA and popliteal. Continued occlusion of all 3 trifurcation vessels. High grade stenosis of SFA origin due to chronic thrombus. 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 Some residual thrombus in profunda. Will decrease TPA to 1mg/hr. Continue overnight. Return to specials in am. Plan Reduce TPA to 1mg/hr. Return to specials 04/04 Jr. Pa,Rich Shah MD April 03, 2017 13:30
--- NOTE | 2017-04-03 14:44 | EKG ---
Date Performed: 04/03/2017 Time Performed: 00:17:15 PTAGE: 87 years EKG: Sinus rhythm WITH FIRST DEGREE AV BLOCK BORDERLINE LEFT AXIS DEVIATION MODERATE INTRAVENTRICULAR CONDUCTION DELAY ST DEVIATION AND MODERATE T-WAVE ABNORMALITY, CONSIDER LATERAL ISCHEMIA Frequent spikes appear to be artifact, however Clinical correlation is recommended, otherwise agree. ABNORMAL ECG NO PREVIOUS TRACING DOCTOR: Braydon Cobos Interpretating Date/Time 04/03/2017 14:42:57
[2017-04-03 14:45] LABS: APTT (PATIENT) 35.9 SEC (24.3-30.1)
--- NOTE | 2017-04-03 16:09 | RADRPT ---
EXAM DATE/TIME: 04/03/2017 12:41 [facility] COMPARISON: No previous studies available for comparison. INDICATIONS : Clinically the patient has shown some improvement with reduced pain involving the right lower leg. Pa in persists within the foot. Sensory and motor function preserved in the foot. Status post 10 hours o f catheter directed thrombolysis. Fibrinogen greater than 500. MEDICAL HISTORY : Hx right ear cancer CAD CHF Renal disease SURGICAL HISTORY : CABG Partial colostomy R hip replacement Skin cancer on right ear removed Left arm fistula ENCOUNTER: Subsequent ACUITY: 1 day PAIN SCORE: 2/10 LOCATION: Right leg FLUORO TIME: 3.2 minutes IMAGE SERIES: 7 ACCESS SITE: Left Femoral artery CONTRAST: 1.) 60 cc Visipaque (iodixanol) DEVICE(S): 1.) Right common femoral artery 6x4mm [place] LAYOUT DESIGNER balloon 2.) Right common femoral artery [id number] Infusion catheter PROCEDURE: 1. Followup thrombolysis 2. Right lower extremity angiogram 3. Angioplasty of the SFA origin 4. Conscious sedation with continuous EKG and oximetry monitoring. Following TPA infusion the patient returned to the angiography suite for reevaluation. The images demonstrate considerable reduction in the thrombus load. There has been resolution of the vast majority of the thrombus throughout the superficial femoral artery and popliteal artery. A focus of clot remains at the SFA origin generating a high-grade stenosis. This reduces the flow through th e SFA. Occlusion of the trifurcation vessels in the mid calf remain. Angioplasty of the chronic clot at the SFA origin was felt prudent to try and improve the blood flow through the SFA. This was perfor med utilizing a 6 mm balloon. No waist was noted on the balloon. It was taken to low pressure. Follow up angiogram shows resolution of the chronic thrombus with good antegrade flow through the previously stenotic segment. A focus of thrombus did embolize into the profunda femoris. Replacement of infusio n catheter was performed with the proximal sideholes feeding the profunda femoris and proximal SFA. T PA will be reduced from 2 mg per hour to 1 mg per hour. The patient tolerated the procedure well and there were no complications. Conscious sedation was perf ormed with the prescribed dosages and duration as above in the presence of an independent trained rad iology nurse to assist in the monitoring of the patient. EKG and oximetry remained stable throughout the procedure. CONCLUSION: 1. Significant reduction in the thrombus load following 10 hours of catheter directed thrombolysis. A focus of chronic clot at the SFA origin was generating a high-grade stenosis and responded well to a ngioplasty. A piece of this clot did embolize into the profunda femoris. There remains complete occlu surya of the trifurcation vessels distal to the mid calf. Continue thrombolysis will be performed over night. The patient will return tomorrow for repeat imaging. Rich Winn Jr., MD on April 03, 2017 at 16:01 Board Certified Radiologist. This report was verified electronically.
[2017-04-03 16:22] LABS: AUTOMATED NEUTROPHIL # 10.5 TH/MM3 (1.8-7.7); BASOPHIL # 0.1 TH/MM3 (0-0.2); BASOPHIL % 0.7 % (0.0-2.0); EOSINOPHIL # 0.1 TH/MM3 (0-0.4); EOSINOPHIL % 0.4 % (0.0-4.0); HEMATOCRIT 31.6 % (39.0-51.0); HEMO FLAGS DIFF FINAL; LYMPH % 21.9 % (9.0-44.0); LYMPHOCYTE # 3.3 TH/MM3 (1.0-4.8); MEAN CELL VOLUME 94.6 FL (80.0-100.0); MEAN CORPUSCULAR HEMOGLOBIN 29.4 PG (27.0-34.0); MONO % 7.6 % (0.0-8.0); NEUT % 69.4 % (16.0-70.0); PLATELET COUNT 281 TH/MM3 (150-450); RED BLOOD COUNT 3.34 MIL/MM3 (4.50-5.90); RED CELL DISTRIBUTION WIDTH 15.8 % (11.6-17.2); WHITE BLOOD COUNT 15.1 TH/MM3 (4.0-11.0)
[2017-04-03 20:45] LABS: AUTOMATED NEUTROPHIL # 12.2 TH/MM3 (1.8-7.7); BASOPHIL # 0.1 TH/MM3 (0-0.2); BASOPHIL % 0.7 % (0.0-2.0); EOSINOPHIL % 0.1 % (0.0-4.0); HEMATOCRIT 28.7 % (39.0-51.0); HEMO FLAGS DIFF FINAL; LYMPH % 22.2 % (9.0-44.0); LYMPHOCYTE # 3.9 TH/MM3 (1.0-4.8); MEAN CELL VOLUME 94.1 FL (80.0-100.0); MEAN CORPUSCULAR HEMOGLOBIN 30.7 PG (27.0-34.0); MEAN CORPUSCULAR HGB CONC 32.6 % (32.0-36.0); PLATELET COUNT 322 TH/MM3 (150-450); RED BLOOD COUNT 3.05 MIL/MM3 (4.50-5.90); WHITE BLOOD COUNT 17.7 TH/MM3 (4.0-11.0)
[2017-04-03] MEDS ORDERED: SODIUM CHLOR 0.9% 1000 ML INJ 1,000 ML IV ONE (21:00)
[2017-04-03] MEDS ORDERED: ALBUMIN HUMAN 5% 25 GM/500 ML BOTTLE IV ONE (21:00)
[2017-04-03 21:27] LABS: APTT (PATIENT) 38.6 SEC (24.3-30.1)
--- NOTE | 2017-04-03 22:08 | RADRPT ---
EXAM DATE/TIME: 04/03/2017 21:41 [facility] COMPARISON: CHEST SINGLE AP, April 02, 2017, 22:22. INDICATIONS : Short of breath MEDICAL HISTORY : Congestive heart failure. Dementia. Dialysis. SURGICAL HISTORY : CABG. ENCOUNTER: Subsequent ACUITY: 2 days PAIN SCORE: Non-responsive. LOCATION: Bilateral chest FINDINGS: Patchy air-space disease is present in both lungs. The heart is enlarged. Mild interstitial edema is present. Pleural calcifications are noted. CONCLUSION: Significant deterioration in the appearance of the chest with patchy air-space diseas e in both lungs. Scar Naranjo MD FACR on April 03, 2017 at 22:03 Board Certified Radiologist. This report was verified electronically.
[2017-04-03 22:27] LABS: BLOOD GAS BASE EXCESS -9.6 mmol/L (-2-2); BLOOD GAS CARBOXYHEMOGLOBIN 1.1 % (0-4); BLOOD GAS HCO3 15 mmol/L (22-26); BLOOD GAS METHEMOGLOBIN 0.7 % (0-2); BLOOD GAS O2 HGB SATURATION 88 % (90-100); BLOOD GAS OXYGEN CONTENT 10.5 Vol % (12.0-20.0); BLOOD GAS PCO2 26 mmHg (38-42); BLOOD GAS PO2 62 mmHg (61-120); BLOOD GAS TOTAL HGB 8.4 G/DL (12.0-16.0); TEMP CORR TO 98.6
[2017-04-03 22:28] LABS: CRITICAL VALUE YES; FIO2 100 %; OXYGEN DEVICE NRB
[2017-04-03 22:29] LABS: STAT NO
[2017-04-03] MEDS ORDERED: ALBUMIN HUMAN 5% 12.5 GM/250 ML BOTTLE IV ONE (22:45)
[2017-04-03] MEDS ORDERED: EPINEPHrine HCL (1:10,000) 1 MG/10 ML SYRINGE ONE (23:00)
[2017-04-03] MEDS ORDERED: PHENYLEPHRINE HCL 10 MG/ML VIAL ONE (23:11)
--- NOTE | 2017-04-03 23:27 | RADRPT ---
EXAM DATE/TIME: 04/03/2017 03:17 [facility] COMPARISON: F/U THRU EXISTING CATH, RIGHT, April 03, 2017, 12:41. US GUIDED VASCULAR ACCESS, LEFT, April 03, 2017, 0 :00. INDICATIONS : Patient presents with right leg occlusion in need of angiogram with possible interventions. MEDICAL HISTORY : Hx right ear cancer CAD CHF Renal disease SURGICAL HISTORY : CABG quad, tents Partial colostomy R hip replacement Skin cancer on right ear removed Left arm fistula ENCOUNTER: Initial ACUITY: 1 month PAIN SCORE: 6/10 LOCATION: Right Leg FLUORO TIME: 9.0 minutes IMAGE SERIES: 6 ACCESS SITE: Left Femoral artery SEDATION TIME: 60 minutes CONTRAST: 1.) 43 cc Visipaque (iodixanol) MEDICATION(S): 1.) 1.5 mg midazolam (Versed) IV 2.) 100 mcg fentanyl (Sublimaze) IV DEVICE(S): 1.) Left popliteal artery 5FR 40CM 100CM EV3 Infusion catheter PROCEDURE : 1. Ultrasound-guided puncture of the access site. 2. Conscious sedation with continuous EKG and oximetry monitoring. 3. Angiography of the pelvis 4. Angiography of the right lower extremity 5. Infusion for thrombolysis The risks, benefits and alternatives to the procedure were explained and verbal and written consent w as obtained. The site was prepped in sterile fashion. Full sterile technique was used, including ca p, mask, sterile gloves and gown and a large sterile sheet. Hand hygiene and 2% chlorhexidine and/or betadine/alcohol prep was utilized per protocol for cutaneous antisepsis. The skin and subcutaneous tissues were infiltrated with local anesthetic solution. With ultrasound and fluoroscopic guidance the left common femoral artery was punctured and a vascular sheath was placed. A 0.035 angle Glidewire and Omni Flush catheter were advanced into the aorta. The right iliac circula tion was easily selected. The catheter and Glidewire were advanced down to the common femoral artery. Injection into the common femoral artery demonstrated a large thrombus in its distal aspect with com plete occlusion of the superficial femoral, popliteal and runoff vessels. There was thrombus extendin g down into the profunda femoral origin and several profunda femoral branches. A 0.035 angled Glidewire was advanced through the occluded superficial femoral artery and down to the popliteal. Angiographic evaluation demonstrates thrombus throughout the popliteal and proximal trifu rcation vessels. A 40 cm length infusion catheter was advanced over the Glidewire and positioned in the distal superfi cial femoral. TPA infusion was initiated at 2 mg per hour. Heparin infusion was initiated at 500 cc p er hour. Conscious sedation was performed with the prescribed dosages and duration as above in the presence of an independent trained radiology nurse to assist in the monitoring of the patient. EKG and oximetry remained stable throughout the procedure. CONCLUSION: Uncomplicated initiation of thrombolytic therapy as above. The patient will be reassessed in approxim ately 12 hours. Franklin Naranjo MD on April 03, 2017 at 23:22 Board Certified Radiologist. This report was verified electronically.
--- NOTE | 2017-04-03 23:50 | PD.RAD ---
Post Procedure Progress Note Pre Procedure Diagnosis: (1) Ischemia of right lower extremity (2) Coronary artery disease (3) PVD (peripheral vascular disease) Post Procedure Diagnosis: (1) Ischemia of right lower extremity (2) Coronary artery disease (3) PVD (peripheral vascular disease) Procedure Date: April 03, 2017 Supervising Radiologist: Franklin Naranjo Estimated blood loss: None Anesthesia: Local Plan of Activity Patient to Unit: Critical Care Patient Condition: Critical Additional Comments: PT post TPA infusion x 24 hours. PT desaturated and began coughing up blood tinged sputum. Right IJ CVL placed. Completion angio preformed demonstrating lysis of the clot throughout the SFA and popliteal. Continued clot in the TP trunk. The PT and peroneal are occluded . AT patent down to the ankle. TPA discontinued due to the patients deteriorating condition. Will start heparin infusion per protocol. See PACS Report for procedural detail/treatment Franklin Naranjo MD April 03, 2017 23:50
[2017-04-04] VITALS: BP 81/53; PULSE 101; RESP 30; TEMP 95.5; O2SAT 80
[2017-04-04] MEDS: Intra-Arterial HEPARIN 1,000 UNITS/500 ML NS (KVO) I-ARTERIAL SCH ×2 (00:10)
[2017-04-04 00:26] VITALS: O2SAT 95
[2017-04-04 00:30] VITALS: PULSE 101
[2017-04-04] MEDS ORDERED: ETOMIDATE 20 MG/10 ML VIAL ONE (00:56)
[2017-04-04] MEDS ORDERED: ATROPINE SULFATE 1 MG/10 ML SYRINGE ONE (00:57)
[2017-04-04] MEDS ORDERED: ETOMIDATE 20 MG/10 ML VIAL IV PUSH ONE (01:00)
[2017-04-04] MEDS ORDERED: VASOPRESSIN INJ 20 UNITS/ML VIAL ONE (01:05)
[2017-04-04 01:21] VITALS: O2SAT 100
[2017-04-04] MEDS ORDERED: fentaNYL 2,500 MCG/NS 250 ML IV SCH (01:30)
[2017-04-04] MEDS ORDERED: PHENYLEPHRINE 40 MG/D5W 496 ML ADMIX IV SCH ×2 (01:30)
[2017-04-04] MEDS ORDERED: D5W IV SCH ×2 (01:30)
[2017-04-04] MEDS ORDERED: [UNRECOGNIZED DRUG - OTHER] IV SCH ×2 (01:30)
[2017-04-04] MEDS ORDERED: TERBUTALINE INJ 1 MG/ML AMP SQ PRN (01:30)
[2017-04-04] MEDS ORDERED: EPINEPHrine HCL (1:10,000) 1 MG/10 ML SYRINGE ONE (01:31)
[2017-04-04] MEDS ORDERED: PROPOFOL 1000 MG/100 ML INJ 100 ML ONE (02:06)
--- NOTE | 2017-04-04 02:06 | RADRPT ---
EXAM DATE/TIME: 04/04/2017 01:18 [facility] COMPARISON: CHEST SINGLE AP, April 03, 2017, 21:41. INDICATIONS : Evaluate for ET tube placement. MEDICAL HISTORY : Congestive heart failure. SURGICAL HISTORY : CABG. ENCOUNTER: Subsequent ACUITY: 1 day PAIN SCORE: Non-responsive. LOCATION: chest FINDINGS: The endotracheal tube tip is in satisfactory position at the level of the aortic arch. NG tip in stom ach. Left central line in superior vena cava. Bilateral airspace consolidation similar to earlier exa m. Small effusions. Pleural calcifications. CONCLUSION: 1. Endotracheal tube, nasogastric tube and left central line in satisfactory position. No pneumothora x. Stable bilateral airspace disease. Postoperative CABG. Bryson Haq MD on April 04, 2017 at 1:59 Board Certified Radiologist. This report was verified electronically.
[2017-04-04] MEDS ORDERED: PHENYLEPHRINE HCL 10 MG/ML VIAL ONE (02:11)
--- NOTE | 2017-04-04 02:11 | RADRPT ---
EXAM DATE/TIME: 04/04/2017 01:45 [facility] COMPARISON: No previous studies available for comparison. INDICATIONS : Blown right pupil post tPA. RADIATION DOSE: 40.26 CTDIvol (mGy) MEDICAL HISTORY : Non-responsive. SURGICAL HISTORY : Non-responsive. ENCOUNTER: Initial ACUITY: 1 day PAIN SCALE: Non-responsive LOCATION: cranial TECHNIQUE: Multiple contiguous axial images were obtained of the head. Using automated exposure control and adj ustment of the mA and/or kV according to patient size, radiation dose was kept as low as reasonably a chievable to obtain optimal diagnostic quality images. FINDINGS: CEREBRUM: The ventricles are normal for age. No evidence of midline shift, mass lesion, hemorrhage or acute in farction. No extra-axial fluid collections are seen. POSTERIOR FOSSA: The cerebellum and brainstem are intact. The 4th ventricle is midline. The cerebellopontine angle i s unremarkable. EXTRACRANIAL: The visualized portion of the orbits is intact. SKULL: The calvaria is intact. No evidence of skull fracture. CONCLUSION: No acute findings. Bryson Haq MD on April 04, 2017 at 2:08 Board Certified Radiologist. This report was verified electronically.
[2017-04-04] MEDS ORDERED: PHENYLEPHRINE HCL 80 MG/D5W 492 ML ADMIX IV SCH ×2 (03:00)
--- NOTE | 2017-04-04 03:02 | PD.PROCEDR ---
Procedure Note Procedure Endotracheal Intubation A time-out was completed verifying correct patient, procedure, site, positioning , and special equipment if applicable. The patient was placed in a flat position. Sedation was obtained using Etomidate 20mg. The patient was easily ventilated using an ambu bag. The [employer]/ MAC 4 BLADE was used and inserted into the oropharynx at which time there was a Grade 1 view of the vocal cords. A 8-occitan endotracheal tube was inserted and visualized going through the vocal cords. The stylette was removed. Colorimetric change was visualized on the CO2 meter. Breath sounds were heard in both lung early equally. The endotracheal tube was placed at 23 cm, measured at the teeth. A chest x-ray was ordered to assess for pneumothorax and verify endotrachealtube placement. Estimated Blood Loss: 0 The patient tolerated the procedure well and there were no complications. Vic Garsia MD April 04, 2017 03:02
[2017-04-04] MEDS ORDERED: PROPOFOL 1000 MG/100 ML IV SCH (03:15)
[2017-04-04] MEDS ORDERED: DOPamine INJ PREMIX 500 ML ONE (03:18)
[2017-04-04] MEDS ORDERED: SODIUM BICARBONATE 8.4% INJ 50 MEQ/50 ML SYR ONE (03:23)
[2017-04-04] MEDS ORDERED: VANCOMYCIN INJ 1,000 MG in SODIUM CHLOR 0.9% 250 ML INJ 250 ML IV ONE ×2 (03:30→03:45)
[2017-04-04] MEDS ORDERED: Vancomycin Consult Pharmacy 1 EA OTHER SCH (03:30)
[2017-04-04] MEDS ORDERED: MIDAZOLAM HCL 5 MG/ML VIAL (1 ML) ONE (03:42)
[2017-04-04] MEDS ORDERED: SODIUM CHLOR 0.9% 1000 ML INJ 1,000 ML IV ONE (03:45)
[2017-04-04] MEDS ORDERED: DOPamine 800 MG/D5W PREMIX 500 ML IV SCH (03:45)
[2017-04-04] MEDS ORDERED: SODIUM BICARBONATE 8.4% SOLN 50 MEQ/50 ML VIAL IV ONE (04:00)
[2017-04-04] MEDS ORDERED: MIDAZOLAM HCL 2 MG/2 ML VIAL IV ONE (04:00)
[2017-04-04] MEDS ORDERED: MORPHINE SULFATE 4 MG/ML INJ IV ONE (04:00)
[2017-04-04 04:09] LABS: BLOOD GAS BASE EXCESS -19.1 mmol/L (-2-2); BLOOD GAS CARBOXYHEMOGLOBIN 0.6 % (0-4); BLOOD GAS HCO3 9 mmol/L (22-26); BLOOD GAS METHEMOGLOBIN 0.8 % (0-2); BLOOD GAS O2 HGB SATURATION 84 % (90-100); BLOOD GAS OXYGEN CONTENT 9.4 Vol % (12.0-20.0); BLOOD GAS PCO2 30 mmHg (38-42); BLOOD GAS PO2 71 mmHg (61-120); BLOOD GAS TOTAL HGB 7.9 G/DL (12.0-16.0); TEMP CORR TO 98.6
[2017-04-04 04:11] LABS: CRITICAL VALUE YES; DRAW SITE ALINE; FIO2 100 %; OXYGEN DEVICE VENTILATOR; VENT SETTINGS AC/16/550/PEEP5
[2017-04-04 04:12] LABS: STAT YES
[2017-04-04] MEDS ORDERED: EPINEPHrine HCL (1:1000) 1 MG/ML VIAL ONE (04:14)
[2017-04-04] MEDS ORDERED: ALBUMIN HUMAN 5% 25 GM/500 ML BOTTLE IV ONE (04:15)
[2017-04-04] MEDS ORDERED: SODIUM BICARBONATE 8.4% INJ 150 MEQ in DEXTROSE 5% IN WATE 1000ML INJ 1,000 ML IV SCH ×2 (04:15)
[2017-04-04 04:25] LABS: AUTOMATED NEUTROPHIL # 16.5 TH/MM3 (1.8-7.7); BASOPHIL % 0.1 % (0.0-2.0); HEMATOCRIT 25.5 % (39.0-51.0); HEMO FLAGS DIFF FINAL; LYMPH % 5.6 % (9.0-44.0); LYMPHOCYTE # 1.1 TH/MM3 (1.0-4.8); MEAN CELL VOLUME 99.5 FL (80.0-100.0); MEAN CORPUSCULAR HEMOGLOBIN 30.9 PG (27.0-34.0); MONO % 7.3 % (0.0-8.0); PLATELET COUNT 250 TH/MM3 (150-450); RED BLOOD COUNT 2.56 MIL/MM3 (4.50-5.90); RED CELL DISTRIBUTION WIDTH 16.2 % (11.6-17.2); WHITE BLOOD COUNT 18.9 TH/MM3 (4.0-11.0)
[2017-04-04 04:49] LABS: ALKALINE PHOSPHATASE 77 U/L (45-117); ALT (GPT) 187 U/L (12-78); ANION GAP 28 MEQ/L (5-15); AST (GOT) 276 U/L (15-37); BICARBONATE 10.8 MEQ/L (21.0-32.0); BLOOD UREA NITROGEN 21 MG/DL (7-18); CHLORIDE 107 MEQ/L (98-107); GLOMERULAR FILTRATION RATE 10 ML/MIN (>89); MAGNESIUM 2.3 MG/DL (1.5-2.5); POTASSIUM 5.6 MEQ/L (3.5-5.1); SODIUM (NA) 146 MEQ/L (136-145); TOTAL BILIRUBIN ADULT 0.6 MG/DL (0.2-1.0)
[2017-04-04] MEDS ORDERED: PIPERACIL-TAZO 2.25 GM PREMIX 50 ML IV SCH (05:00)
--- NOTE | 2017-04-04 05:19 | PD.PROCEDR ---
Procedure Note Procedure A time-out was completed verifying correct patient, procedure, site, positioning , and special equipment if applicable. Allens test was performed to ensure adequate perfusion. The patients right wrist was prepped and draped in sterile fashion. 1% Lidocaine was used to anesthetize the area. A 18G Arrow arterial line was introduced into the radial artery. The catheter was threaded over the guide wire and the needle was removed with appropriate pulsatile blood return. The catheter was then sutured in place to the skin and a sterile dressing applied. Perfusion to the extremity distal to the point of catheter insertion was checked and found to be adequate. Estimated Blood Loss: 1ml The patient tolerated the procedure well and there were no complications. Vic Garsia MD April 04, 2017 05:19
--- NOTE | 2017-04-04 05:45 | DEATH SUM ---
Pronouncement Date Pronounced : April 04, 2017 Time Of : 05:27 Pronouncement Called to pronounce of patient. Identified patient as Ronald Simmons with wrist band MR# [id number]. Patient with no cardiac activity in 2 separate leads and no palpable/auscible cardiac activity. Patient with no spontaneous respirations, no corneal reflex or response to painful stimuli. Pupils fixed and dilated. Vic Garsia MD April 04, 2017 05:45
[2017-04-04] MEDS ORDERED: SODIUM BICARBONATE 8.4% INJ 50 MEQ/50 ML SYR IV ONE (07:09)
--- NOTE | 2017-04-04 13:05 | RADRPT ---
EXAM DATE/TIME: 04/03/2017 23:07 [facility] COMPARISON: F/U THRU EXISTING CATH, RIGHT, April 03, 2017, 12:41. INDICATIONS : Patient with history of ischemia of right lower extremity in need of follow-up TPA angiogram. MEDICAL HISTORY : CAD, PVD, ESRD on hemodialysis, CHF SURGICAL HISTORY : Partial colostomy-reversed, CABG, Right total hip replacement, AV hemodialysis fistula, Right fem/pop angioplasty, Thrombolytic infusion ENCOUNTER: Subsequent ACUITY: 1 day PAIN SCORE: 0/10 FLUORO TIME: 1.8 minutes IMAGE SERIES: 8 CONTRAST: 1.) 30 cc Visipaque (iodixanol) DEVICE(S): 1.) Left common femoral artery 6F Angio-Seal PROCEDURE: F/U THRU EXISTING CATHETER 1. Followup thrombolysis 2. angiography of the right lower extremity 3. Central line placement 4. Angiography of the access site 5. Conscious sedation with continuous EKG and oximetry monitoring. The patient was seen by the associate professor of music service. The patient was noted to be experiencing respiratory difficulty and coughing up a small to moderate volume of blood tinged sputum and was having some res piratory desaturation.. The decision was made to discontinue the TPA therapy. The patient was brought to the angiography suite. The TPA infusion catheter was removed. Angiography of the right lower trauma he was performed. This demonstrated complete lysis of clot within the commo n femoral and superficial femoral arteries. There were still some clot in several distal profunda fem oral branches. The superficial femoral was adequate in caliber throughout its course. The popliteal w as diseased but patent above and below the level of the knee. Distally, there was single vessel runof f down to the ankle via a heavily diseased anterior tibial. Angiography of the common femoral artery was performed for evaluation prior to percutaneous closure d evice placement. The puncture site was closed with the prescribed closure device. The patient tolera sharron the procedure well and there were no complications. No conscious sedation was administered due to the patient's respiratory status. The patient was monit ored by an independent trained radiology nurse to assist in the monitoring of the patient. EKG and o ximetry remained stable throughout the procedure. CONCLUSION: 1. There has been complete lysis of the clot within the common femoral superficial femoral and poplit eal arteries. There is still thrombus seen in several distal branches of the profunda femoral. There is some residual clot evident within the tibioperoneal trunk. There is runoff down to the foot via a diseased anterior tibial. The TPA administration has been discontinued secondary to deterioration of the patient's underlying medical condition. The patient was transferred back to the ICU in guarded bu t stable condition. Franklin Naranjo MD on April 04, 2017 at 12:59 Board Certified Radiologist. This report was verified electronically.
--- NOTE | 2017-04-04 15:00 | RADRPT ---
EXAM DATE/TIME: 04/03/2017 23:07 [facility] COMPARISON: F/U THRU EXISTING CATH, RIGHT, April 03, 2017, 12:41. INDICATIONS : Patient with history of ischemia of right lower extremity in need of emergent central line placement. MEDICAL HISTORY : CAD, PVD, ESRD on hemodialysis, CHF SURGICAL HISTORY : Partial colostomy-reversed, CABG, Right total hip replacement, AV hemodialysis fistula, Right fem/pop angioplasty, Thrombolytic infusion ENCOUNTER: Initial ACUITY: 1 day PAIN SCORE: 0/10 FLUORO TIME: 1.8 minutes IMAGE SERIES: 0 ACCESS: Left internal jugular vein DEVICE(S): 1.) 7 Thai triple lumen 20 cm Arrow central line PROCEDURE : 1. Ultrasound guided venipuncture. 2. Fluoroscopic guidance. 3. Central line placement. The risks, benefits and alternatives to the procedure were explained and verbal and written consent w as obtained. The site was prepped in sterile fashion. Full sterile technique was used, including ca p, mask, sterile gloves and gown and a large sterile sheet. Hand hygiene and 2% chlorhexidine prep w as utilized per protocol for cutaneous antisepsis with appropriate dry time for site. The skin and subcutaneous tissues were infiltrated with local anesthetic solution. A suitable site a jelly the vein was selected with ultrasound and fluoroscopic guidance. A small incision was made. Th e vein was accessed under direct ultrasound visualization using the micropuncture technique. The josephine ropuncture set was exchanged for a 0.035 wire. The tract was dilated. The catheter was advanced int o position under direct fluoroscopic visualization. The catheter was fixed in place with suture and a sterile dressing was applied. The patient tolerated the procedure well and there were no complications. CONCLUSION: Uncomplicated line placement as above. Franklin Naranjo MD on April 04, 2017 at 14:58 Board Certified Radiologist. This report was verified electronically.
--- NOTE | 2017-04-04 21:00 | EKG ---
Date Performed: 04/04/2017 Time Performed: 03:39:02 PTAGE: 87 years EKG: Possible atrial flutter with rapid ventricular response. Left axis deviation Left ventricul ar hypertrophy Extensive ST-T changes are probably due to ventricular hypertrophy Abnormal ECG PREVIOUS TRACING : 04/04/2017 01.12 Compared to prior tracing no significant change DOCTOR: Jose Wolff Interpretating Date/Time 04/04/2017 20:59:30
--- NOTE | 2017-04-04 21:09 | EKG ---
Date Performed: 04/04/2017 Time Performed: 01:12:20 PTAGE: 87 years EKG: Accelerated idioventricular rhythm. Left axis deviation IV conduction defect Left ventricul ar hypertrophy Extensive ST-T changes are probably due to ventricular hypertrophy Abnormal ECG PREVIOUS TRACING : 04/03/2017 21.44 Compared to prior tracing no significant change DOCTOR: Jose Wolff Interpretating Date/Time 04/04/2017 21:08:42
--- NOTE | 2017-04-04 21:20 | EKG ---
Date Performed: 04/03/2017 Time Performed: 21:44:56 PTAGE: 87 years EKG: Probable accelerated junctional rhythm. Left axis deviation Left ventricular hypertrophy In ferior/lateral ST-T changes are probably due to ventricular hypertrophy Abnormal ECG PREVIOUS TRACING : 04/03/2017 20.44 Compared to prior tracing no significant change DOCTOR: Jose Wolff Interpretating Date/Time 04/04/2017 21:18:42
--- NOTE | 2017-04-04 21:21 | EKG ---
Date Performed: 04/03/2017 Time Performed: 20:44:36 PTAGE: 87 years EKG: Sinus tachycardia. Possible right atrial abnormality Leftward axis Left ventricular hypertr ophy Inferior/lateral ST-T changes are probably due to ventricular hypertrophy Abnormal ECG PREVIOUS TRACING : 04/03/2017 00.17 Compared to the previous tracing sinus tachycardia is new DOCTOR: Jose Wolff Interpretating Date/Time 04/04/2017 21:20:04
--- NOTE | 2017-04-30 23:20 | HHI.DS ---
Summary Note Date of : April 04, 2017 Time Of : 05:27 Admission Date April 03, 2017 at 01:31 Admitting Diagnosis Ischemic RLE Diagnosis at Time of : Brief History 87-year-old gentleman with history of coronary artery disease, status post CABG , peripheral vascular disease, end-stage renal disease on hemodialysis was brought by the family today for complaining of severe right lower extremity pain. He was found in the emergency department to be missing peripheral pulses on the right lower extremity and was emergently taken to the vascular suite for angiogram and thrombolysis. He was diagnosed with acute right lower extremity thrombosis and treated with TPA. Imaging Last 24 hours Impressions Chest X-Ray 04/02/172146 Signed Impressions: Service Date/Time: Sunday, April 02, 2017 22:22 - CONCLUSION: 1. Chronic fibrotic changes bilaterally unchanged from the prior study. No acute pulmonary disease. Alex Terry MD Hospital Course 87-year-old gentleman with history of coronary artery disease, status post CABG , peripheral vascular disease, end-stage renal disease on hemodialysis was brought by the family today for complaining of severe right lower extremity pain. He was found in the emergency department to be missing peripheral pulses on the right lower extremity and was emergently taken to the vascular suite for angiogram and thrombolysis. He was diagnosed with acute right lower extremity thrombosis and treated with TPA. Postprocedure his clinical condition deteriorated, he became hypotensive requiring multiple pressors and later on developed severe metabolic acidosis respiratory failure requiring intubation and mechanical ventilation. Despite aggressive medical management with multiple pressors and sodium bicarbonate to correct his acidosis he deteriorated and patient on April 04 at 5:27 AM. Family present at the bedside. Patient was DNR. Vic Garsia MD Apr 30, 2017 23:20
== END 2017-04-04 07:10 | disposition expired | DRG 252 ==
LOC: NEPC 21:35 → NEDA 04-03 01:31 → N03B 04-03 04:24
PROVIDERS: ADMIT Internal Medicine Critical Care Medicine; ATTEND Internal Medicine Critical Care Medicine
PROC: 047K3ZZ Dilation of Right Femoral Artery, Percutaneous Approach (ICD-10-PCS; principal; 2017-04-03)
PROC: 3E04317 Introduction of Other Thrombolytic into Central Vein, Percutaneous Approach (ICD-10-PCS; 2017-04-03)
PROC: 03HY32Z Insertion of Monitoring Device into Upper Artery, Percutaneous Approach (ICD-10-PCS; 2017-04-04)
PROC: 02HV33Z Insertion of Infusion Device into Superior Vena Cava, Percutaneous Approach (ICD-10-PCS; 2017-04-04)
PROC: B518ZZA Fluoroscopy of Superior Vena Cava, Guidance (ICD-10-PCS; 2017-04-04)
PROC: 0BH17EZ Insertion of Endotracheal Airway into Trachea, Via Natural or Artificial Opening (ICD-10-PCS; 2017-04-04)
DX: I75.021 Atheroembolism of right lower extremity (principal); N18.6 End stage renal disease; I12.0 Hypertensive chronic kidney disease with stage 5 chronic kidney disease or end stage renal disease; R04.2 Hemoptysis; I48.91 Unspecified atrial fibrillation; I25.10 Atherosclerotic heart disease of native coronary artery without angina pectoris; Z95.5 Presence of coronary angioplasty implant and graft; Z99.2 Dependence on renal dialysis; Z87.891 Personal history of nicotine dependence; Z95.1 Presence of aortocoronary bypass graft
CPT/HCPCS: 31500; 36247; 36556; 37211; 37214; 37224; 70450; 71010; 75635; 75710; 76937; 77001; 80053; 82550; 82805; 83605; 83735; 84100; 84484; 85025; 85384; 85610; 85730; 86850; 86900; 86901; 86920; 87641; 93005; 94664; 96365; 96375; 99152; 99153; C1725; C1757; C1760; C1769; C1887; C1894; J0171; J0461; J1265; J1644; J2250; J2270; J2370; J2997; J3010; J7030; J7040; P9045; Q9967